=== PATIENT | female | born 1985 | race Caucasian/White ===

== ENCOUNTER 2019-01-30 08:59 | Inpatient (IN) ==
[2019-01-30] MEDS ORDERED: PENICILLIN G POTASSIUM 3 MU in DEXTROSE 5% 100 ML IV PRN (09:16)
[2019-01-30] MEDS ORDERED: LACTATED RINGER'S 1,000 ML IV PRN (09:16)
[2019-01-30] MEDS ORDERED: OXYTOCIN 30 UNITS/500 ML BAG IV PRN ×2 (09:16→10:16)
--- NOTE | 2019-01-30 09:21 | Obstetrical Progress Note ---
Date of Service January 30, 2019 Subjective Admit Note 34 F P0000 at 38.3 weeks admitted in active labor. Cervix 7/100/- 2/vertex/intact. GBS is positive. FHT Cat 1 with regular contractions every 2- 3 minutes. Will admit and start antibiotics. Anticipate normal delivery. Results & Data Vital Signs (Past 12 Hours) Vital Signs Pulse BP 01/30/19 09:11 63 127/70
[2019-01-30] MEDS ORDERED: PENICILLIN G POTASSIUM 6 MU in DEXTROSE 5% 250 ML IV STA (09:34)
[2019-01-30 09:46] LABS: Hematocrit (blood only) 30.7 % (37-47); Hemoglobin 10.4 g/dL (12.0-16.0); Mean Corpuscular Volume 82.7 fL (80-100); Mean Platelet Volume 10.8 fL (7.4-10.4); Platelet Count 188 K/uL (130-400); RDW Coefficient of Variation 14.5 % (11.5-14.5); RDW Standard Deviation 43.5 fL (36.4-46.3); Red Blood Count 3.71 M/uL (4.2-5.4)
[2019-01-30] MEDS ORDERED: BENZOCAINE 20% AER SPR 82.5 GM CAN EXT PRN (10:16)
[2019-01-30] MEDS ORDERED: SUPERCREAM 0.870% 15 GM JAR EXT PRN (10:16)
[2019-01-30] MEDS ORDERED: BISACODYL 10 MG SUPP PR PRN (10:16)
[2019-01-30] MEDS ORDERED: MEASLES, MUMPS & RUBELLA VIRUS VIAL SQ ONE (10:16)
[2019-01-30] MEDS ORDERED: IBUPROFEN 600 MG TAB PO PRN (10:16)
[2019-01-30] MEDS ORDERED: HYDROCORTISONE ACETATE 25 MG SUPP PR PRN (10:16)
[2019-01-30] MEDS ORDERED: DIPHTHERIA/TETANUS/PERTUSSIS 0.5 ML SYR/VIAL IM ONE (10:16)
[2019-01-30] MEDS ORDERED: ACETAMINOPHEN 325 MG TAB PO PRN (10:16)
--- NOTE | 2019-01-30 10:21 | Procedure Note ---
Vaginal Delivery Summary Date of Service January 30, 2019 Vaginal Delivery Summary Delivery Note live female over intact perineum MICHELLE with nuchal cord x1 reduced at delivery with Apgars 7/9 weight pending. Cord blood obtained. Placenta delivered spontaneously and intact. Small right vaginal tear repaired with 3/0 Vicryl suture. EBL 250 ml. Final sponge, needle and instrument count are correct. Mom and baby stable.
[2019-01-30 10:33] LABS: Mean Corpuscular Hgb Conc 33.9 g/dL (32-36)
[2019-01-30] MEDS: DOCUSATE SODIUM 100 MG CAP PO SCH (21:10)
[2019-01-31 07:18] LABS: Hematocrit (blood only) 25.6 % (37-47); Hemoglobin 8.5 g/dL (12.0-16.0); Mean Corpuscular Hgb Conc 33.2 g/dL (32-36); Mean Corpuscular Volume 83.7 fL (80-100); Mean Platelet Volume 10.9 fL (7.4-10.4); Platelet Count 161 K/uL (130-400); RDW Coefficient of Variation 14.7 % (11.5-14.5); RDW Standard Deviation 44.1 fL (36.4-46.3); Red Blood Count 3.06 M/uL (4.2-5.4)
--- NOTE | 2019-01-31 08:10 | Obstetrical Progress Note ---
Date of Service January 31, 2019 Subjective Patient is seen and examined. She feels well, no complaints. Ambulating without dizziness Voiding without difficulty Tolerating regular diet with out N&V Bleeding is minimal No fever/ chills/ CP/ SOB/ N&V/ Leg pain Breast feeding without problems Vital Signs Temp Pulse Resp BP Pulse Ox 01/31/19 08:00 37 C 68 18 121/76 97 01/31/19 04:15 36.7 C 64 16 125/75 97 01/30/19 23:30 37.1 C 83 20 146/78 H 97 01/31/19 01/30/19 Range/Units 06:59 09:30 WBC 17.10 H 14.10 H (4.8-10.8) K/uL RBC 3.06 L 3.71 L (4.2-5.4) M/uL Hgb 8.5 L 10.4 L (12.0-16.0) g/dL Hct 25.6 L 30.7 L (37-47) % MCV 83.7 82.7 (80-100) fL MCH 27.8 28.0 (25-34) pg MCHC 33.2 33.9 (32-36) g/dL RDW Std Deviation 44.1 43.5 (36.4-46.3) fL RDW Coeff of Rosa 14.7 H 14.5 (11.5-14.5) % Plt Count 161 188 (130-400) K/uL MPV 10.9 H 10.8 H (7.4-10.4) fL PE: General: Alert, orientedx3, NAD Abd: soft, NT, fundus firm, below Umbilicus Perineum intact, Lochia rubra minimal Ext; NT, no edema AP: 34 yo s/p , ppd# 1 VSS Afebrile doing well Continue routine care All questions were answered D/C home tomorrow Results & Data Vital Signs (Past 12 Hours) Vital Signs Temp Pulse Resp BP Pulse Ox 01/31/19 08:00 37 C 68 18 121/76 97 01/31/19 04:15 36.7 C 64 16 125/75 97 01/30/19 23:30 37.1 C 83 20 146/78 H 97
[2019-01-31] MEDS: DOCUSATE SODIUM 100 MG CAP PO SCH ×2 (08:33→20:55)
[2019-01-31] MEDS: PRENATAL VITAMIN 1 TAB PO SCH (08:33)
[2019-01-31] MEDS: FERROUS SULFATE 325 MG TAB PO SCH (08:33)
[2019-01-31] MEDS ORDERED: PRENATAL VITAMIN 1 TAB PO SCH (09:00)
[2019-01-31] MEDS ORDERED: BISACODYL 5 MG TABEC PO SCH (20:00)
[2019-02-01 07:04] LABS: Basophils # (auto) 0.03 K/uL (0-0.2); Basophils % (auto) 0.2 %; Eosinophils # (auto) 0.15 K/uL (0-0.5); Hematocrit (blood only) 25.1 % (37-47); Hemoglobin 8.3 g/dL (12.0-16.0); Immature Granulocytes # (auto) 0.17 K/uL (0.00-0.02); Immature Granulocytes % (auto) 1.1 %; Lymphocytes % (auto) 15.4 %; Mean Corpuscular Hgb Conc 33.1 g/dL (32-36); Mean Corpuscular Volume 83.9 fL (80-100); Mean Platelet Volume 10.6 fL (7.4-10.4); Monocytes # (auto) 0.99 K/uL (0.11-0.59); Monocytes % (auto) 6.3 %; Neutrophils # (auto) 11.86 K/uL (1.4-6.5); Nucleated RBC # (auto) 0.04 K/uL (0-0); Nucleated RBC % (auto) 0.2 %; Platelet Count 158 K/uL (130-400); RDW Coefficient of Variation 15.1 % (11.5-14.5); RDW Standard Deviation 45.8 fL (36.4-46.3); Red Blood Count 2.99 M/uL (4.2-5.4)
--- NOTE | 2019-02-01 09:16 | Obstetrical Progress Note ---
Date of Service February 01, 2019 Physical Exam Physical Exam: abdomen soft and non tender vaginal bleeding scant to moderate no calf tenderness ambulating well hgb 8.3 Results & Data Vital Signs (Past 12 Hours) Vital Signs Temp Pulse Resp BP Pulse Ox 01/31/19 23:30 37.4 C 63 18 136/78 97
[2019-02-01] MEDS: DOCUSATE SODIUM 100 MG CAP PO SCH (10:03)
[2019-02-01] MEDS: PRENATAL VITAMIN 1 TAB PO SCH (10:03)
[2019-02-01] MEDS: FERROUS SULFATE 325 MG TAB PO SCH (10:03)
== END 2019-02-01 12:17 | disposition home or self-care (01) | DRG 806 ==
LOC: OPB 08:59 → 4S1 09:00 → 4S2 13:14

== ENCOUNTER 2021-05-17 07:31 | Inpatient (IN) ==
[2021-05-17] MEDS ORDERED: OXYTOCIN 30 UNITS/500 ML BAG IV PRN ×2 (08:13→17:46)
[2021-05-17] MEDS ORDERED: LACTATED RINGER'S 1,000 ML IV PRN (08:13)
[2021-05-17] MEDS ORDERED: SODIUM CHLORIDE 0.9% 1000ML 1,000 ML IV PRN (08:33)
[2021-05-17] MEDS ORDERED: DEXTROSE 5% 1,000 ML IV PRN (08:33)
[2021-05-17] MEDS ORDERED: INSULIN REGULAR 250 UNITS in SODIUM CHLORIDE 0.9% 247.5 ML IV PRN (08:33)
[2021-05-17] MEDS ORDERED: DEXTROSE 50% 50 ML SYRINGE IV PRN (08:33)
[2021-05-17 08:55] LABS: Hemoglobin 11.5 g/dL (12.0-16.0); Mean Corpuscular Hemoglobin 30.3 pg (25-34); Mean Corpuscular Hgb Conc 32.9 g/dL (32-36); Mean Corpuscular Volume 92.1 fL (80-100); Platelet Count 198 K/uL (130-400); RDW Coefficient of Variation 14.5 % (11.5-14.5); White Blood Count 11.87 K/uL (4.8-10.8)
[2021-05-17] MEDS ORDERED: DINOPROSTONE 10 MG INSERT PV ONE (09:00)
--- NOTE | 2021-05-17 09:34 | History & Physical Report ---
Date of Service May 17, 2021 Assessment & Plan Admission and Anticipated Discharge Date Admission Date: May 17, 2021 History of Present Illness Chief Complaint: induction of labor for gestational diabetes on insulin Primary Care Provider: NO PCP 36 F P1001 at 39+ weeks for IOL for GDM on insulin Allergies Allergy/AdvReac Type Severity Reaction Status Date / Time No Known Allergies Allergy Verified 07/05/18 21:41 Home Medications Medication Instructions Recorded Confirmed Type vit no.133-ferrous 1 tab PO DAILY 07/05/18 01/30/19 History fumarate 28 mg-folic acid 800 mcg tablet () Patient History Medical History No known health problems Threatened Vaginal bleeding Surgical History No history of previous surgery Family History Other No history of previous surgery No known health problems No pertinent family history Social History Smoking Status: Never smoker Second Hand Exposure: No; Hx Alcohol Use: No Hx Substance Use: No Preferred Language: Scottish Communication Ability: Effective Suit Attendant Required: No Beliefs That Will Affect Care: None marital status: Current Living Situation: Spouse Other Information That Helps Us Care for You: No Feels Safe at Home: Yes Safety Concerns: Feels Safe At This Time Assistive Devices: None OB History x1 by me [employer]NA[employer] History wnl Review of Systems All systems reviewed & are unremarkable except as noted in HPI & below Physical Exam Constitutional: WD/WN, vitals as above comfortable Eyes: PERRL, conjunctivae normal, anicteric sclerae Respiratory: normal respiratory effort, lungs clear to auscultation Cardiovascular: RRR, no murmur, no edema Skin: no rashes, warm and dry Neurologic: patellar DTR's 2+ bilat, sensation intact Psychiatric: A+Ox3, euthymic affect Genitourinary: Manual OB Exam: + cervical dilation 1 cm, + cervical effacement 20% and + station high Results & Data ([place]) Vital Signs (Past 12 Hours) Vital Signs Temp Pulse Resp BP 05/17/21 08:46 36.6 C 20 05/17/21 07:46 75 124/68 Laboratory Results Laboratory Results - last 24 hr 05/17/21 05/17/21 05/17/21 07:56 07:56 08:25 WBC 11.87 H RBC 3.80 L Hgb 11.5 L Hct 35.0 L MCV 92.1 MCH 30.3 MCHC 32.9 RDW Std Deviation 49.0 H RDW Coeff of Rosa 14.5 Plt Count 198 MPV 11.0 H COVID-19 Eval [facility] SARS-CoV-2, RNA, NAAT NEGATIVE Code Status & VTE Plan VTE Prophylaxis Plan VTE Prophylaxis will be ordered: No Monitoring External Monitor FHT Cat 1 with no contractions
--- NOTE | 2021-05-17 09:35 | Labor Progress Brief Note ---
Date of Service May 17, 2021 Assessment & Plan Admission and Anticipated Discharge Date Admission Date: May 17, 2021 Physical Exam Genitourinary: Manual OB Exam: + cervical dilation 1 cm, + cervical effacement 20% and + station high Cervidil placed vaginally for cervical ripening Results & Data ([facility]) Vital Signs (Past 12 Hours) Vital Signs Temp Pulse Resp BP 05/17/21 09:28 75 121/61 05/17/21 08:46 36.6 C 20 05/17/21 07:46 75 124/68
--- NOTE | 2021-05-17 17:44 | Delivery Summary ---
Vaginal Delivery Summary Date of Service May 17, 2021 Vaginal Delivery Summary Delivery Note live male JYOTI with delayed cord clamping and Apgars 9/9/ Cord blood obtained followed by spontaneous delivery of intact placenta. Small right labial tear repaired with 4/0 Vicryl suture. EBL 100 ml. Final sponge, needle and instrument count are correct. Mom and baby stable.
[2021-05-17] MEDS ORDERED: BENZOCAINE 20% AER SPR 82.5 GM CAN EXT PRN (17:46)
[2021-05-17] MEDS ORDERED: ACETAMINOPHEN 325 MG TAB PO PRN (17:46)
[2021-05-17] MEDS ORDERED: SUPERCREAM 0.870% 15 GM JAR EXT PRN (17:46)
[2021-05-17] MEDS ORDERED: DIPHTHERIA/TETANUS/PERTUSSIS 0.5 ML SYR/VIAL IM ONE (17:46)
[2021-05-17] MEDS ORDERED: IBUPROFEN 600 MG TAB PO PRN (17:46)
[2021-05-17] MEDS ORDERED: HYDROCORTISONE ACETATE 25 MG SUPP PR PRN (17:46)
[2021-05-17] MEDS: DOCUSATE SODIUM 100 MG CAP PO SCH (20:41)
[2021-05-18 06:40] LABS: Hematocrit (blood only) 35.8 % (37-47); Mean Corpuscular Hemoglobin 30.5 pg (25-34); Mean Corpuscular Hgb Conc 33.5 g/dL (32-36); Mean Corpuscular Volume 90.9 fL (80-100); Mean Platelet Volume 11.1 fL (7.4-10.4); Platelet Count 175 K/uL (130-400); RDW Coefficient of Variation 14.5 % (11.5-14.5); RDW Standard Deviation 48.2 fL (36.4-46.3); Red Blood Count 3.94 M/uL (4.2-5.4)
[2021-05-18] MEDS ORDERED: FERROUS SULFATE 325 MG TAB PO SCH (08:00)
[2021-05-18] MEDS ORDERED: PRENATAL VITAMIN 1 TAB PO SCH (08:00)
--- NOTE | 2021-05-18 08:01 | Obstetrical Progress Note ---
Date of Service May 18, 2021 Assessment & Plan Admission and Anticipated Discharge Date Admission Date: May 17, 2021 Subjective Patient is seen and examined. She feels well, no complaints. Ambulating without dizziness Voiding without difficulty Tolerating regular diet with out N&V Bleeding is minimal No fever/ chills/ CP/ SOB/ N&V/ Leg pain Breast feeding without problems Vital Signs Temp Pulse Pulse Resp BP BP Pulse Ox 05/18/21 03:35 36.6 C 65 16 106/70 97 05/17/21 23:20 37.0 C 70 16 109/69 97 05/17/21 20:40 37.1 C 80 16 136/84 97 05/17/21 19:52 36.8 C 76 18 105/61 05/17/21 19:42 87 118/62 05/17/21 19:27 65 117/59 L 05/17/21 19:20 36.8 C 18 05/17/21 19:12 70 122/57 L 05/17/21 18:58 68 122/59 L 05/17/21 18:42 72 134/69 05/17/21 18:23 57 L 128/67 05/17/21 14:17 36.7 C 65 20 114/68 05/17/21 09:28 75 121/61 05/17/21 08:46 36.6 C 20 Lab Results 05/17/21 05/17/21 05/17/21 Range/Units 07:56 07:56 08:25 WBC 11.87 H (4.8-10.8) K/uL RBC 3.80 L (4.2-5.4) M/uL Hgb 11.5 L (12.0-16.0) g/dL Hct 35.0 L (37-47) % MCV 92.1 (80-100) fL MCH 30.3 (25-34) pg MCHC 32.9 (32-36) g/dL RDW Std Deviation 49.0 H (36.4-46.3) fL RDW Coeff of Rosa 14.5 (11.5-14.5) % Plt Count 198 (130-400) K/uL MPV 11.0 H (7.4-10.4) fL POC Glucose (70-99) mg/dl COVID-19 Eval [facility] SARS-CoV-2, RNA, NAAT NEGATIVE (NEGATIVE) 05/17/21 05/18/21 Range/Units 09:40 06:01 WBC 15.70 H (4.8-10.8) K/uL RBC 3.94 L (4.2-5.4) M/uL Hgb 12.0 (12.0-16.0) g/dL Hct 35.8 L (37-47) % MCV 90.9 (80-100) fL MCH 30.5 (25-34) pg MCHC 33.5 (32-36) g/dL RDW Std Deviation 48.2 H (36.4-46.3) fL RDW Coeff of Rosa 14.5 (11.5-14.5) % Plt Count 175 (130-400) K/uL MPV 11.1 H (7.4-10.4) fL POC Glucose 107 H (70-99) mg/dl COVID-19 Eval Order SARS-CoV-2, RNA, NAAT (NEGATIVE) PE: General: Alert, orientedx3, NAD Abd: soft, NT, fundus firm, below Umbilicus Perineum intact, Lochia rubra minimal Ext; NT, no edema AP: 36 yo s/p , ppd# 1 VSS Afebrile doing well Continue routine care All questions were answered Desires D/C home tonight Discussed when to call Results & Data ([facility]) Vital Signs (Past 12 Hours) Vital Signs Temp Pulse Resp BP Pulse Ox 05/18/21 03:35 36.6 C 65 16 106/70 97 05/17/21 23:20 37.0 C 70 16 109/69 97 05/17/21 20:40 37.1 C 80 16 136/84 97
[2021-05-18] MEDS: DOCUSATE SODIUM 100 MG CAP PO SCH (08:06)
[2021-05-18] MEDS ORDERED: NON-FORMULARY MEDICATION (Prenat.Vits,Cal,Min-Iron-Folic Tablet) PO SCH (09:00)
[2021-05-18] MEDS ORDERED: bisacodyL 5 MG TABEC PO SCH (20:00)
[2021-05-19] MEDS ORDERED: bisacodyL 10 MG SUPP PR PRN (06:00)
== END 2021-05-18 18:40 | disposition home or self-care (01) | DRG 807 ==
LOC: 4S1 07:31 → 4S2 20:15